=== PATIENT | female | born 1955 | race Caucasian/White ===

== ENCOUNTER → 2017-12-07 | Outpatient (CLI) | payer OTHER ==
[~2017-12-07] MED LIST: ATOR10TA82 PO; GARL400T4 PO; GLIP-171 PO; LISI-726 PO; LPR25 PO; MULT-506 PO; OMEP20TA PO; ZNT/300 PO
--- NOTE | 2017-12-08 06:04 | PAP/PSG TECHNICIAN REPORT ---
[facility] Rod Welder Polysomnogram Report Study name: None Report date: 12/08/2017 Study date: 12/07/2017 Referring Physician: Radha Roberts PA-C Name: MC DUMONT Interpreting Physician: Rito Chowdary D.O. Date of : 1955 Rod Welder: Jason Duckworth RPSGT. Sex: Female Age: 62 StudyType: PSG Weight: 283 lbs 18.5 inches Height: 62 years, Height 5' 4" Neck Circum: BMI: 48.57 Medications: ATORVASTATIN cALCIUM 10 MG, CELEBREX 200 MG, COLESTIPOL HCL 1 MG, DICYCLOMINE HCL 10 MG, FLONASE 50 MCG, GLIPIZIDE XL 5 MG, LISINOPRIL 20 MG, METOPROLOL TARTRATE 25 MG, OMEPRAZOLE MAGNESIUM, PROAIR HFA 108 90 BASE, PROZAC 10 MG, RANITIDINE HCL 300 MG Patient History PATIENT HAS HISTORY OF SNORING, FATIGUE, GASPING FOR AIR AND CHRONIC COUGH. SHE ALSO TENDS TO GET HEADACHES. SHE IS HERE TODAY FOR AN EVALUATION FOR OBIE. ESS = 7 RM 8 Parameters Monitored NPSG: E1-M2, E2-M1, Fp1-M2, Fp2-M1, F3-M2, F4-M2, F4-M1, C3-M2, C4-M2, C4-M1, O1-M2, O2-M2, O2-M1, T3-M2, T4-M1, P3-M2, P4-M1, CHIN1, CHIN2, HR, EKG, Legs, PFLOW, SNOR, FLOW, CFLOW, Tidal Volume, THOR, ABDO, SpO2, PLTH, CPRESS, ETCO2 Wave, ETCO2, pH Sleep Architecture Sleep Stages Time at Lights Off 9:00:34 PM STAGES Time (min.) TST (%) Time at Lights On 5:13:04 AM Wake 174.5 -- Total Recording Time (TRT) 493.50 min. N1 13.5 4 Total Sleep Period (TSP) 429.0 min. N2 141.5 44 Total Sleep Time (TST) 318.0min. N3 95.5 30 Awake Time 175.5 min. REM 67.5 21 Wake after Sleep Onset 116.5 min. Sleep Efficiency (SE) 65 % Sleep Onset Latency (DAVIS) 58.0 min. Number of Stage 1 Shifts None Awakenings 16 Stage Changes 56 Number of REM periods 2 REM 67.5 21 REM Latency 186.5 min. NREM 250.5 79 Body Position Analysis Supine Right Left Side Prone Vertical Total Sleep Time (min.) 177.0 102.0 100.6 202.55 0.0 0.0 Total Sleep Time (%) 36% 32% 32% 64 0% N/A% Total Sleep Time REM (min.) 27.0 40.5 0.0 None 0.0 0.0 Total Sleep Time NREM (min.) 88.4 61.5 100.6 None 0.0 0.0 Intermittent Wake (min.) 61.6 21.2 91.7 None 0.0 0.0 Total Sleep Period (%) 34% None None None None None Arousals Myoclonus (PLM) * Events Count Index Events Count Index Spontaneous 32 6 Events Awake (PLMW) 144 49.5 Respiratory 5 0.9 Events Asleep w/ Arousal (PLMA) 7 1.3 PLM 7 1 Events Asleep w/o Arousal (PLMS) 39 7.4 Snoring 3 1 Total Asleep 46 8.7 Total 47 9 Total 190 23 Respiratory Analysis * CA OA MA CH H RERA Total Count 0 0 0 0 58 1 58 Index 0.0 0.0 0.0 0 10.9 0 11.1 Mean Duration 0.0 0.0 0.0 0.00 20.8 13.2 20.7 Longest Duration 0.0 0.0 0.0 0.00 0.0 13.2 45.9 Respiratory Event Summary Total Supine ~Supine Right Left Prone REM NREM Apneas Count 0 0 0 0 0 N/A 0 0 Index 0.0 0 0 0.0 0.0 N/A 0 0 Hypopneas (4% Desat) Count 58 35 23 21 2 N/A 36 22 Index 10.9 18.2 7 12.4 1.2 N/A 32.0 5.3 Apneas & All Hypopneas Count 58 35 23 21 2 N/A 36 22 Index 10.9 18 7 12 1 N/A 32.0 5.3 Respiratory Events (Manifest/Order Organizer Print Orders+All Hyp+RERA) Count 58 35 24 22 2 N/A 36 22 Index 11.1 18 7 12.9 1.2 N/A 32.0 5.5 Respiratory Related Arousal Count 5 35 1 1 0 N/A 0 5 Index 0.9 2 0 1 0 N/A 0 1 Snoring Analysis Supine Right Left Prone REM NREM Total Snore duration 11.3 min Snores count 275 129 315 N/A 317 402 719 Snore mean duration 0.9 Sec Snores index 143 76 188 N/A 281.8 96.3 135.7 TST with snoring (%) 3.5% Desaturation Event Summary: Minimum %SpO2 Event Count Mean/Min/Max Duration(sec.) Desaturation Index % Time In Bed > 90 30 34.5 / 6.8 / 74.1 6.7 55.8 86 - 90 20 35.7 / 5.5 / 55.5 7.5 33.4 81 - 85 22 37.3 / 20.8 / 53.0 38.6 7.1 76 - 80 5 39.1 / 25.4 / 58.9 16.7 3.7 71 - 75 0 N/A 0.0 0.1 66 - 70 0 N/A 0.0 0.0 61 - 65 0 N/A 0.0 0.0 56 - 60 0 N/A 0.0 0.0 51 - 55 0 N/A 0.0 0.0 < 50 0 N/A 0.0 0.0 Total REM NREM Awake <50% 0.0 min. 0.0 min. 0.0 min. 0.0 min. 51 - 60% 0.0 min. 0.0 min. 0.0 min. 0.0 min. 61 - 70% 0.0 min. 0.0 min. 0.0 min. 0.0 min. 71 - 80% 18.3 min. 18.3 min. 0.0 min. 0.0 min. 81 - 90% 195.3 min. 48.5 min. 128.0 min. 18.8 min. 91 - 100% 269.4 min. 0.7 min. 119.8 min. 148.9 min. Average 90 83 90 92 Minimum SpO2 74 74 86 86 Desaturation Event Index 8.3 32.9 5.0 3.4 # Desat. Events below 89% 53 37 15 1 Time(%) with Saturation below 89% 17.2 13.3 3.6 0.3 Time(min.) with Saturation below 89% 83.2 64.3 17.4 1.5 Time (mins) REM (mins) NREM (mins) % of TST SpO2 Below 90% 58 37 N21 40.6 SpO2 Below 88% 32 0 0 20 Heart Rate Analysis Min (bpm) Max (bpm) Average (bpm) Awake 34 86 59 NREM 50 127 57 REM 55 75 64 Overall 50 127 58 Supplemental O2 Values Minimum O2 level: None Value Start Time End Time Rod Welder Comments Mrs. Dumont slept in the right, left and supine positions. No cardiac arrhythmia noted. Leg movements noted. No bruxism noted. Snoring was noted and scored as a 4 on a scale of 1 through 5. (0=no snoring, 5=snoring loud enough to be heard through a closed door or down the [address] way) Mrs. Dumont awoke to use the restroom 1 time during the night. Mrs. Dumont stated I did not sleep as well as I do when I am in my own bed. The final report will be interpreted and signed by a sleep physician. The completed physician report will then be placed in the patient medical record. Therapy (cm H2O) 0 TIB (min.) 492.5 TST (min.) 318.0 Sleep Onset (min.) 58.0 REM Onset From Sleep (min.) 186.5 Sleep Efficiency % 65 Wakefulness (%) 35 Wakefulness (min.) 175.5 NREM 1 (%) 4 NREM 1 (min.) 13.5 NREM 2 (%) 44 NREM 2 (min.) 141.5 NREM 3 (%) 30 NREM 3 (min.) 95.5 REM (%) 21 REM (min.) 67.5 # Arousals 47 Arousal Index 9 # Snore 719 Snore Index 135.7 AHI 10.9 AHI Supine 18 AHI Non-Supine 7 NREM AHI 5.3 REM AHI 32.0 RDI 11.1 # Obstructive Apnea 0 # Central Apnea 0 # Mixed Apnea 0 # Hypopneas 58 RERAs 1 Total Respiratory Events 60 Time Below SpO2 89% (min.) 81.7 Mean NREM SpO2 (%) 90 Mean REM SpO2 (%) 83 Mean Sleep SpO2 (%) 89 Min NREM SpO2 (%) 86 Min REM SpO2 (%) 74 Position Supine (min.) 177.0 Position Non-supine (min.) 202.6 LM Index Sleep 8.7 LM Index NREM 9.1 LM Index REM 7.1 Mean Heart Rate (bpm) 58 Min Heart Rate (bpm) 50
--- NOTE | 2017-12-11 11:55 | POLYSOMNOGRAPH REPORT ---
CLINICAL DATA: The patient is a 62-year-old female with a BMI of 48.57. She has a history of snoring, fatigue, and nocturnal gasping. She has headaches. She completed the [place] sleepiness scale and had a score of 7 out of a possible 24. This was an in-lab overnight polysomnography. SLEEP ARCHITECTURE: The total sleep period was 429 minutes. The total sleep time was 318 minutes. The sleep efficiency was reduced to 65%. The sleep latency was increased to 58 minutes. Wake after sleep onset was increased to 116.5 minutes. Sleep consisted of stage N1 4%, stage N2 44%, stage N3 30%, stage REM 21%. AROUSAL DATA: The patient had a total of 47 arousals including 32 spontaneous, 5 respiratory, 7 PLM, and 3 snoring arousals. The arousal index was 9. PLM DATA: The patient had a total of 46 periodic limb movements of sleep for a PLM index of 8.7. There were 7 arousals, associated with limb movements for a PLM arousal index of 1.3. EKG: The cardiac rates ranged from 50-86 beats per minute. The average heart rate was 58 beats per minute. RESPIRATORY DATA: The patient had a total of 58 respiratory events, all hypopneas. Hypopneas were scored according to the 4% desaturation rule. The mean duration of the hypopneas was 20.8 seconds. There was 1 RERA. The apnea hypopnea index is mildly elevated at 10.9 events per hour. This reflects mild sleep apnea. OXIMETRY DATA: The average saturation for the night was 90%. The minimum saturation was 74%. There was a total of 83.2 minutes with saturations less than 89%. [employer] COMMENTS: Mrs. Dumont slept in the right, left, and supine positions. No cardiac arrhythmia noted. Leg movements noted. No bruxism noted. Snoring was noted and scored as a 4 on a scale of 1 through 5. She stated she did not sleep as well as she does in her own bed. IMPRESSION: 1. Obstructive sleep apnea - mild. 2. Nocturnal hypoxia. COMMENTS: The patient had a decreased sleep efficiency. Mainly, this was related to marked difficulty initiating and staying asleep. She had very little sleep prior to 11:00 p.m. There was then 1 fairly long episode of wake during the night. In between her sleep was fairly well consolidated. She did have respiratory events that occurred mainly in and around REM sleep. The REM apnea hypopnea index was elevated at 32. Likewise, there were more events while supine as her apnea-hypopnea index in the supine position was 18. RECOMMENDATIONS: 1. Consideration is given to a trial of nasal CPAP. This could be done either by a CPAP titration in the lab or alternatively with auto CPAP. 2. Weight loss is advised in light of the elevation of body mass index at 48.57. 3. The patient should avoid sleeping in the supine position. 4. If the patient would refuse treatment with nasal CPAP, an alternative consideration could be an oral appliance. 5. The patient should be advised of the appropriate principles of sleep hygiene including having a regular sleep-wake schedule and allowing 7.5-8 hours of sleep per night.
== END | disposition home or self-care (01) ==
LOC: C.NEUR 20:00
PROVIDERS: ATTEND Physician Assistant
DX: G47.33 Obstructive sleep apnea (adult) (pediatric) (principal); Z87.09 Personal history of other diseases of the respiratory system